=== PATIENT | male | born 1955 | race Hispanic/Latino ===

== ENCOUNTER 2017-12-01 21:20 | Emergency (ER) | payer BC ==
--- NOTE | 2017-12-01 22:53 | ED PDOC ---
Arrival/HPI - General Chief Complaint: Back Pain Time Seen by Provider: 12/01/17 22:45 Historian: Patient - History of Present Illness Narrative History of Present Illness (Text): 12/01/17 22:52 Sanjay Wellington is a 62 year old male who presents to the emergency department complaining of back pain status post fall. Patient states he slipped while walking home yesterday and struck his right side against a wall. Patient states he developed right lower rib/back pain yesterday, but notes it has been improving. Patient states he took Ibuprofen at home. Patient able to ambulate without difficulty. Patient denies any head trauma, loss of consciousness, neck pain, headache, dizziness, paresthesias, or any other complaints. Time/Duration: 24 hours Symptom Onset: Sudden Symptom Course: Improving Context: Walking, Home, Slipped Past Medical History - Provider Review Nursing Documentation Reviewed: Yes - Infectious Disease Hx of Infectious Diseases: None Family/Social History - Physician Review Nursing Documentation Reviewed: Yes Family/Social History: Unknown Family HX Allergies/Home Meds Allergies/Adverse Reactions: Allergies No Known Allergies Allergy (Verified 12/01/17 22:28) Review of Systems - Physician Review All systems were reviewed & negative as marked: Yes - Review of Systems Constitutional: Normal. absent: Fevers Eyes: Normal ENT: Normal Respiratory: Normal. absent: SOB, Cough Cardiovascular: Normal. absent: Chest Pain Gastrointestinal: Normal. absent: Abdominal Pain, Diarrhea, Nausea, Vomiting Genitourinary Male: Normal. absent: Dysuria, Frequency, Hematuria, Urinary Output Changes Musculoskeletal: Back Pain. absent: Neck Pain Skin: Normal. absent: Rash Neurological: Normal. absent: Headache, Dizziness Endocrine: Normal Hemo/Lymphatic: Normal Psychiatric: Normal Physical Exam Vital Signs Reviewed: Yes Vital Signs Temp Pulse Resp BP Pulse Ox 12/02/17 00:39 98.4 F 84 18 136/87 99 Temperature: Afebrile Blood Pressure: Normal Pulse: Regular Respiratory Rate: Normal Appearance: Positive for: Well-Appearing, Non-Toxic, Comfortable Pain Distress: None Mental Status: Positive for: Alert and Oriented X 3 - Systems Exam Head: Present: Atraumatic, Normocephalic Pupils: Present: PERRL Extroacular Muscles: Present: EOMI Conjunctiva: Present: Normal Mouth: Present: Moist Mucous Membranes Neck: Present: Normal Range of Motion Respiratory/Chest: Present: Clear to Auscultation, Good Air Exchange. No: Respiratory Distress, Accessory Muscle Use Cardiovascular: Present: Regular Rate and Rhythm, Normal S1, S2. No: Murmurs Abdomen: No: Tenderness, Distention, Peritoneal Signs Back: Present: Paraspinal Tenderness (Tenderness over lower lateral ribcage area , no crepitus, overlying skin abrasion) Upper Extremity: Present: Normal Inspection. No: Cyanosis, Edema Lower Extremity: Present: Normal Inspection. No: Edema Neurological: Present: GCS=15, CN II-XII Intact, Speech Normal Skin: Present: Warm, Dry, Normal Color. No: Rashes Psychiatric: Present: Alert, Oriented x 3, Normal Insight, Normal Concentration Medical Decision Making ED Course and Treatment: 12/01/17 22:52 Impression: 62 year old male complaining of right lower back pain s/p fall. Differential Diagnosis included but are not limited to: fracture vs. contusion vs. muscular sprain Plan: -- XR Right Ribs and Chest -- Ultram -- Reassess and disposition Progress Notes: 12/02/17 00:35 XR Right Ribs and Chest reviewed, shows no acute processes, no acute fractures. On reevaluation the patient feels better and is in no acute distress. I have discussed the results and plan with the patient, who expresses understanding. Patient given the opportunity to ask question, all questions were answered and there is agreement with the plan to discharge the patient home. Patient is stable for discharge. Patient was instructed to follow up with physician/clinic in 1-2 days or return if symptoms persist/worsen or new concerning symptoms arise. - RAD Interpretation Radiology Orders: 12/01/17 22:56 RIBS RIGHT & PA CHEST [RAD] Stat - Medication Orders Current Medication Orders: Discontinued Medications Tramadol HCl (Ultram) 50 mg PO STAT STA Stop: 12/01/17 22:56 Last Admin: 12/01/17 23:12 Dose: 50 mg YESENIA Pain Assessment Document 12/01/17 23:12 AD (Rec: 12/01/17 23:14 AD [id number]) Pain Reassessment Is this a pain reassessment? No Presence of Pain Presence of Pain Yes Pain Scale Used Pain Scale Used Numeric Location Left, Right or Bilateral Right Pain Location Body Site Back Description Intensity of Pain at present 8 Pain Behavior Facial Grimacing Aggravating Factors Changing Position Exercise/Activity - Scribe Statement The provider has reviewed the documentation as recorded by the Scribe Serenity Tristan Provider Scribe Attestation: All medical record entries made by the Scribe were at my direction and personally dictated by me. I have reviewed the chart and agree that the record accurately reflects my personal performance of the history, physical exam, medical decision making, and the department course for this patient. I have also personally directed, reviewed, and agree with the discharge instructions and disposition. Disposition/Present on Arrival - Present on Arrival Any Indicators Present on Arrival: No History of DVT/PE: No History of Uncontrolled Diabetes: No Urinary Catheter: No History of Decub. Ulcer: No History Surgical Site Infection Following: None - Disposition Have Diagnosis and Disposition been Completed?: Yes Diagnosis: Contusion of ribs, Abrasion Disposition: HOME/ ROUTINE Disposition Time: 00:28 Patient Plan: Discharge Condition: GOOD Discharge Instructions (ExitCare): Contusion (DC), Bruised Rib (DC) Additional Instructions: Medication as prescribed/rest/no strenuous physical activity/follow up with your doctor this week Prescriptions: Tramadol HCl [Ultram] 50 mg PO Q6 PRN #12 tab PRN Reason: Pain, Moderate (4-7) Referrals: Claudia Carrillo MD [Primary Care Provider] - Follow up with primary Forms: [employer] (Lao)
[2017-12-02 00:41] VITALS: BP 136/87; PULSE 84; RESP 18; TEMP 98.4; O2SAT 99
--- NOTE | 2017-12-02 09:57 | RAD ---
PROCEDURE: Radiographs of the Chest and Right Ribs. HISTORY: injury COMPARISON: None available. TECHNIQUE: Frontal radiograph of the chest and multiple oblique radiographs of the right ribs were obtained. FINDINGS: RIGHT RIBS: No rib fracture or focal lesion visualized. LUNGS: The lungs are well inflated and clear. PLEURA: No pneumothorax or pleural fluid. CARDIOVASCULAR: Normal sized heart. No pulmonary vascular congestion. OTHER FINDINGS: None. IMPRESSION: No pneumothorax or pleural effusion. No acute right rib fracture.
== END 2017-12-02 00:41 | disposition home or self-care (01) ==
LOC: ED 21:20
DX: S20.211A Contusion of right front wall of thorax, initial encounter (principal); S20.311A Abrasion of right front wall of thorax, initial encounter; W01.0XXA Fall on same level from slipping, tripping and stumbling without subsequent striking against object, initial encounter; Y93.01 Activity, walking, marching and hiking; Y92.009 Unspecified place in unspecified non-institutional (private) residence as the place of occurrence of the external cause